=== PATIENT | male | born 1990 | race Caucasian/White ===

== ENCOUNTER 2020-02-01 23:26 | Emergency (ER) | payer MEDICAID, SELFPAY ==
[2020-02-01 23:29] VITALS: BP 103/74; PULSE 125; RESP 18; TEMP 36.9; O2SAT 100
--- NOTE | 2020-02-01 23:30 | W.ED.GENAD ---
Discharge Plan Disposition Patient Disposition: HOME Condition: Good Discharge Details Chief Complaint: Laceration Clinical Impression: Laceration of multiple sites of right hand and fingers Primary Care Provider: Brian Tubbs ED Provider: Librado Aden Home Meds and New Rx's Prescriptions: New cephalexin 500 mg tablet 500 mg PO Q8H Qty: 10 RF: 0 Discharge Instructions Instructions: Laceration (ED) Additional Instructions: You will need follow-up with orthopedics to evaluate whether you injured the tendon in your index finger or not. It is also possible that you compressed the median nerve too long. You should call in the morning for follow-up appointment. Wear the splint on this finger at all times until follow-up. You may remove the bandages and clean the area twice a day and then re-bandage. Take antibiotics as directed. Return to ED for increasing pain, redness, swelling, drainage. Referrals: David Lanier MD [ [facility] STAFF PHYSICIAN] - Discharge Data Discharge Date/Time-TO BE ENTERED AT DEPARTURE: 02/02/20 00:25 Medical Decision Making Patient presenting with right finger lacerations. Also has numbness in the right thumb, index finger, long finger. Tight tourniquet that he applied himself wrapped around the wrist compressing median nerve. This was cut away with some effort. No significant bleeding from the lacerations. Good capillary refill noted. Continued complaint of diminished sensation. Able to feel pinprick, however. Unable to flex the PIP or DIP joints of the index finger. Good flexion of the thumb. Good flexion of the other 3 fingers. Normal extension. Lacerations are present on the palmar aspect at the base of the index and long finger. Please see procedure notes. Digital block done to both fingers with lidocaine 1% plain. Wounds irrigated out. Gently explored. Index finger laceration does appear to be deep but is not obviously involving the flexor tendon. Long finger laceration fairly superficial. Wounds with 4-0 nylon. Patient tolerated well. Both lacerations dressed. Index finger put in a baseball splint for protection of possible flexor tendon injury. Tetanus status updated. Cephalexin started. Would assume the numbness to his fingers related to the tourniquet and compression of the median nerve and hopefully resolves with time. Possible that the compression is what was also affecting the ability to flex his finger given that the laceration itself did not seem that deep. But, given the location the possibility of flexor tendon laceration is considered. Will refer to orthopedics for follow-up. Patient placed on orthopedic follow-up list and I will contact on-call physician in the morning. HPI General Mode of arrival: ambulatory. Date/Time Provider Initiated Documentation: 02/01/20 23:30. Limitations to Documentation: no limitations. Information obtained by: patient and RN notes reviewed. HPI Narrative: Patient presents to ED with lacerations to his right hand. Patient is right-hand dominant. He was chopping up wood with a machete. The machete was wet. His hand slipped and his index and long finger were lacerated. He is intoxicated. He had a friend drive him here. He thought he was losing too much blood and wrapped a tourniquet with his shirt and duct tape very tightly around his right wrist. He reports the numbness involving his thumb, index finger, long finger of the right hand. He denies other injury. He does not know his last tetanus status. Related Data Home Medications Medication Instructions Recorded Confirmed cephalexin 500 mg PO Q8H #10 tab 02/02/20 Previous Rx's Medication Instructions Recorded cephalexin 500 mg PO Q8H #10 tab 02/02/20 Allergies Allergy/AdvReac Type Severity Reaction Status Date / Time No Known Allergies Allergy Unverified 02/01/20 23:32 Review of Systems Constitutional Constitutional: Denies fever(s) Cardiovascular Cardiovascular: Denies dyspnea Respiratory Respiratory: Denies cough and Denies dyspnea Musculoskeletal Musculoskeletal: Reports numbness and Reports tingling Integumentary/Breasts Skin/Breast: Reports wounds Neurologic Neurologic: Reports numbness and Reports tingling [facility] Medical History ADHD (attention deficit hyperactivity disorder) evaluation (Chronic) 12/19/97 Surgical History Hydrocelectomy 03/1998-RIGHT Social History Smoking/Tobacco Use Status: Current every day Alcohol Intake: current Drug use: Occasionally Do you feel safe at home: Yes Do you feel safe in your relationship?: Yes Exam Const General: cooperative, no acute distress and well developed Nutritional Appearance: well nourished Orientation: alert and oriented x3 HENMT Head: normal to inspection, normocephalic and atraumatic Neck Neck: normal visual inspection, trachea midline and supple Resp Effort & Inspection: normal respiratory effort Skin Trauma: laceration (Laceration across base of the palmar aspect of the long and index finger) Neuro General: patient alert, patient oriented x3, gait normal and CN's II-XI intact bilaterally Cognition: normal cognition Speech: speech normal Gait: normal gait Motor: strength 5/5 throughout Sensory Exam: other (Decreased sensation in the right thumb, index, long finger palmar aspect.) Extrem Right upper extremity: normal capillary refill, wrist (Tight tourniquet involving shirt and duct tape wrapped around the wrist.) and hand Details: other (Decreased sensation as stated above. Full extension of all fingers. Full flexion of thumb. Unable to flex PIP or DIP of index finger. Good flexion of other 3 fingers.) Procedures Laceration Laceration 1: Site: hand (Index finger) Side (If applicable): right Size (cm): 1.5 Description: linear Depth: simple, single layer Pre-repair: wound explored and irrigated extensively Skin layer closed with: nylon Size (cm): 4-0 Number of sutures: 3 Technique: simple, interrupted Laceration 2: Site: hand (Long finger) Side (If applicable): right Size (cm): 1 Description: linear Depth: simple, single layer Pre-repair: wound explored and irrigated extensively Skin layer closed with: nylon Size (cm): 4-0 Number of sutures: 2 Technique: simple, interrupted Nerve Block Nerve Block 1: Time out performed: Yes Local Anesthetic: Lidocaine 1% Amount of anesthesia used (mL): 3 Side: right Nerve Blocks: digital Procedure Successful: Yes Patient Tolerated Procedure: well Nerve Block 2: Time out performed: Yes Local Anesthetic: Lidocaine 1% Amount of anesthesia used (mL): 3 Side: right Nerve Blocks: digital Procedure Successful: Yes Patient Tolerated Procedure: well
[2020-02-02] MEDS: Cephalexin 500 MG CAP, 2 CAPS/BTL PO (00:20)
--- NOTE | 2020-02-07 11:27 | PDOC.ERCMPRO ---
- If Service Date Differs Date of service: 02/03/20 Time of Service: 11:27 Care Management Progress Note CM telephones [facility] to ensure receipt of referral. Marta advises they did get a referral but have been unable to reach patient to schedule an appointment. CM will follow up with patient.
== END 2020-02-02 00:25 | disposition home or self-care (01) ==
LOC: ER 02-02 00:33
PROVIDERS: Emergency Provider Emergency Medicine; PCP Family Medicine
DX: S61.210A Laceration without foreign body of right index finger without damage to nail, initial encounter (principal); S61.212A Laceration without foreign body of right middle finger without damage to nail, initial encounter; W26.0XXA Contact with knife, initial encounter; R20.0 Anesthesia of skin; F10.120 Alcohol abuse with intoxication, uncomplicated
CPT/HCPCS: 12001; 90471

== ENCOUNTER 2023-05-15 06:04 | Emergency (ER) | payer MEDICAID, SELFPAY ==
[2023-05-15 06:08] VITALS: BP 132/94; PULSE 73; RESP 16; TEMP 36.8; O2SAT 95
--- NOTE | 2023-05-15 06:15 | DI.RAD_ITS ---
Exam(s) XR WRIST RT COMPLETE EXAM: XR WRIST RT COMPLETE CLINICAL HISTORY: pain s/p fall. TECHNIQUE: 2D digital imaging was performed. COMPARISON: No exams were available for comparison FINDINGS: 3 views No evidence of fracture or dislocation nor significant ulnar variance. Bone density normal. No osse ous lesions. IMPRESSION: No significant osseous findings in the wrist. DATA REPOSITORY: RADIATION DOSE DELIVERED:
--- NOTE | 2023-05-15 06:30 | ED.GENADUL_ITS ---
Discharge Plan Disposition Patient Disposition: Home Condition: Stable Discharge Details Chief Complaint: Orthopedic Clinical Impression: Right wrist sprain Primary Care Provider: Unknown,Unknown ED Provider: Jimmy Siu Home Meds and New Rx's Prescriptions: No Action No Known Home Meds Discharge Instructions Instructions: Wrist Sprain (ED) Additional Instructions: wear the splint until pain free if you are still having pain in a week follow up with express care or your primary care provider if you feel more ill or have severe worsening of pain return to the emergency department Medical Decision Making 33 yo male with no chronic medical problems comes in with right wrist pain. He states 2 weeks or so ago he tripped and caught himself with his right wrist and bent his wrist posteriorly. No head truama or loc. HE's had radail sided wrist pain since. He has no visible or palpable deformities of the wrist. Full rom though wth some pain on the radial side of the wrist. Full rom of the fingers, normal pulses and senastion, is tender in the right anterior wrist, no snuffbox tenderness. Suspect sprain of the wrist, will obtain xrays to evaluate for fracture xray negative on my read, vrad turnaround time estimaged at 90 minutes and patient doesn't want to wait which I feel is reasonable. Suspect wrist sprain, will place in thumb spica splint and advised if still having pain in a week to see pcp, return precautions given Differential Diagnosis Differential Diagnosis: sprain, strain, fracture Imaging Data Radiologic Study: Attestation: I personally reviewed and interpreted this imaging study as follows: Imaging: X-Ray My impression: no acute findings HPI General Mode of arrival: ambulatory . Date/Time Provider Initiated Documentation: 05/15/23 06:13 . Limitations to Documentation: no limitations . Information obtained by: patient . History of Present Illness 33 year old M presents to the emergency department with the chief complaint of right wrist pain, described as moderate, Quality is described as aching, Patient started experiencing this week(s) (2) and it has been constant. Rest improves symptom(s), Movement worsens symptoms . Patient notes no other symptoms.. Patient did receive the following treatments prior to arrival, none Related Data Home Medications Medication Instructions Recorded Confirmed Unknown [No Known Home Meds] 05/15/23 05/15/23 Allergies Allergy/AdvReac Type Severity Reaction Status Date / Time No Known Allergies Allergy Unverified 05/15/23 06:15 General Stated Complaint: Orthopedic DIANE: 4 Review of Systems All systems reviewed & are unremarkable except as noted in HPI and below Constitutional Constitutional: Denies chills, Denies fever(s) and Denies weakness Cardiovascular Cardiovascular: Denies chest pain and Denies dyspnea Respiratory Respiratory: Denies cough and Denies dyspnea Gastrointestinal Gastrointestinal: Denies abdominal pain, Denies nausea and Denies vomiting Integumentary/Breasts Skin/Breast: Denies rash Neurologic Neurologic: Denies weakness Psychiatric Psychiatric: Denies depression PFSH All Active Problems (Updated 05/15/23 @ 06:49 by Jimmy Siu MD) Right wrist sprain (Acute) ADHD (attention deficit hyperactivity disorder) evaluation (Chronic) 12/19/97 Surgical History Hydrocelectomy 03/1998-RIGHT Social History Smoking/Tobacco Use Status: Current every day Tobacco Type: cigarettes Smoking risk assessment performed?: Yes Alcohol Intake: current Alcohol Intake frequency: a few times a week Alcohol type: beer Drug use: Daily Substance use type: marijuana Housing: apartment Do you feel safe at home: Yes Do you feel safe in your relationship?: Yes Exam Const General: no acute distress Orientation: alert HENMT Head: normal to inspection Ears: external ears normal General nose exam: external nose normal Mouth: moist mucous membranes Eyes General: appearance normal, both eyes and all related structures Neck Neck: normal visual inspection Resp Effort & Inspection: normal respiratory effort and able to speak in complete sentences Cardio Rate: regular rate Skin General skin exam: no rashes or lesions noted Neuro General: patient alert and patient oriented x3 Extrem General: normal to inspection, full ROM and capillary refill normal Psych Mental Status: mental status grossly normal Course Vital Signs Vital signs: Vital Signs Temperature 36.8 C 05/15/23 06:08 Pulse 73 05/15/23 06:08 Respiratory Rate 16 05/15/23 06:08 Blood Pressure 132/94 H 05/15/23 06:08 Pulse Oximetry 95 05/15/23 06:08 Temperature 36.8 C 05/15/23 06:08 Temperature Source Oral 05/15/23 06:08 Pulse 73 05/15/23 06:08 Respiratory Rate 16 05/15/23 06:08 Respiratory Effort Normal, Non-Labored 05/15/23 06:13 Blood Pressure 132/94 H 05/15/23 06:08 Blood Pressure Position Sitting 05/15/23 06:08 Pulse Oximetry 95 05/15/23 06:08 Oxygen Delivery Method Room Air 05/15/23 06:08 Oxygen Flow Rate 0 05/15/23 06:08 Pain Level 4 05/15/23 06:16 PAWSS Have you Been Recently Intoxicated or Drunk Within the Last 30 days?: No Have you Ever Experienced Previous Episodes of Alcohol Withdrawal?: No Have you ever Experienced Withdrawal Seizures?: No Have you ever Experienced Delirium Tremens(DT)s?: No Have you ever undergone Alcohol Rehabilitation Treatment (i.e, inpt ot outpatient treatment programs)?: No Have you ever Experienced Blackouts?: No Have you ever Combined Alcohol with other Downers within the last 90 days?: No Have you ever Combined Alcohol with any other Substance of Abuse during the last 90 days?: No Positive Blood Alcohol level on Presentation? [PCS.BAL]: No Evidence of Increased Autonomic Activity (i.e. HR>120, tremor, sweating, agitation, nausea)?: No Result: 0
[2023-05-15] MEDS: Ibuprofen 600 MG TAB PO (06:33)
--- NOTE | 2023-05-15 07:57 | DI.VRAD_ITS ---
PROCEDURE INFORMATION: Exam: XR Right Wrist Exam date and time: 05/15/2023 6:37 AM Age: 33 years old Clinical indication: Other: Pain S/P fall TECHNIQUE: Imaging protocol: Radiologic exam of the right wrist. Views: 3 or more views. COMPARISON: No relevant prior studies available. FINDINGS: Bones/joints: No fracture seen. No dislocation. Soft tissues: Unremarkable. IMPRESSION: No fracture seen. If there is tenderness in the anatomic snuffbox, repeat radiographs in 7-10 days are recommended to evaluate for occult scaphoid fracture. Dictated and Authenticated by: Susanne Post MD. Ordering:NAPOLEON Marquez MD
--- NOTE | 2023-05-15 13:36 | NUR.NOTE ---
Accessed pt chart to determine diagnosis for [facility] billing. Nursing Note:
== END 2023-05-15 06:52 | disposition home or self-care (01) ==
PROVIDERS: Emergency Provider Emergency Medicine
DX: S63.501A Unspecified sprain of right wrist, initial encounter (principal); F17.210 Nicotine dependence, cigarettes, uncomplicated; W01.0XXA Fall on same level from slipping, tripping and stumbling without subsequent striking against object, initial encounter
CPT/HCPCS: 29125; 99283; 73110

== ENCOUNTER 2024-05-30 13:56 | Emergency (ER) | payer SELFPAY ==
[2024-05-30 14:02] VITALS: BP 123/74; PULSE 101; RESP 14; TEMP 36.7; O2SAT 97
--- OUTSIDE RECORDS SUMMARY | 2024-05-30 14:21 | XMS_ITS | Continuity of Care Document ---
Author Organization [facility] Address [address] [place] [address] Encounter LTTL_ME FIN NBR [id number] Date(s): 12/02/22 - 12/02/22 [facility] [address] [place], [place] [address] Encounter Diagnosis Finger laceration(Discharge Diagnosis) - 12/02/22 Discharge Disposition: Home or Self Care Attending Physician: Marta Bridges MD Admitting Physician: Marta Bridges MD Allergies, Adverse Reactions, Alerts No Known Allergies Immunizations Given and Recorded Vaccine Date Status Refusal Reason tetanus/diphth/pertuss (Tdap) adult/adol 12/02/22 Given Medications No Known Medications Mental Status 12/02/22 Eye Opening Response Rescue Spontaneous ly Best Verbal Response Vaibhav Oriented Best Motor Response Vaibhav Obeys comman ds Vaibhav Coma Score 15 Vital Signs Most recent to oldest [Reference Range]: 1 Temperature Temporal Artery [36-38 Deg C ] 35.9 Deg C *LOW* (12/02/22 2:43 PM) Peripheral Pulse Rate [60-100 bpm] 77 bp m (12/02/22 2:43 PM) Respiratory Rate [12-24 br/min] 16 br/mi n (12/02/22 2:43 PM) Blood Pressure [90-140/60-90 mmHg] 139/8 3mmHg (12/02/22 2:43 PM) Weight 72.57 kg (12/02/22 2:43 PM) Weight Dosing 72.57 kg (12/02/22 2:57 PM) Height 182.880 cm (12/02/22 2:43 PM) Height/Length Dosing 182.880 cm (12/02/22 2:57 PM) Body Mass Index 22.000 kg/m2 (12/02/22 2:43 PM) Social History Social History Type Response Tobacco Current everyday tob acco user Tobacco Use:. Sex Hospital Discharge Instructions Patient Education 12/02/2022 15:30:11 Laceration Care, Adult Laceration Care, Adult A laceration is a cut that may go through all layers of the skin and into the tissue that is right under the skin. Some lacerations heal on their own. Others need to be closed with stitches (sutures), jacky, skin adhesive strips, or skin glue. Proper care of a laceration reduces the risk for infection, helps the laceration heal better, and may prevent scarring. General tips ??? Keep the wound clean and dry. ??? Do not scratch or pick at the wound. ??? Wash your hands with soap and water for at least 20 seconds before and after touching your wound or changing your bandage (dressing). If soap and water are not available, use hand inner tube cutter. ??? Do not usedisinfectants or antiseptics, such as rubbing alcohol, to clean your wound unless told by your health care provider. ??? If you were given a dressing, you should change it at least once a day, or as told by your health care provider. You should also change it if it becomes wet or dirty. How to care for your laceration If sutures or jacky were used: ??? Keep the wound completely dry for the first 24 hours, or as told by your health care provider. After that time, you may shower or bathe. Do not soak your wound in water until after the sutures orstaples have been removed. ??? Clean the wound once each day, or as told by your health care provider. To do this: ??? Wash the wound with soap and water. ??? Rinse the wound with water to remove all soap. ??? Pat the wound dry with a clean towel. Do not rub the wound. ??? After cleaning the wound, apply a thin layer of antibiotic ointment, other topical ointments, or a non-adherent dressing as told by your health care provider. This will help prevent infection andkeep the dressing from sticking to the wound. ??? Have the sutures or jacky removed as told by your health care provider. Do not remove suturesor jacky yourself. If skin adhesive strips were used: ??? Do not get the skin adhesive strips wet. You may shower or bathe, but keep the wound dry. ??? If the wound gets wet, pat it dry with a clean towel. Do not rub the wound. ??? Skin adhesive strips fall off on their own. If adhesive strip edges start to loosen and curl up, you may trim the loose edges. Do not remove adhesive strips completely unless your health care provider tells you to do that. If skin glue was used: ??? You may shower or bathe, but try to keep the wound dry. Do not soak the wound in water. ??? After showering or bathing, pat the wound dry with a clean towel. Do not rub the wound. ??? Do not do any activities that will make you sweat a lot until the skin glue has fallen off. ??? Do not apply liquid, cream, or ointment medicine to the wound while the skin glue is in place. Doing this may loosen the film before the wound has healed. ??? If a dressing is placed over the wound, do not apply tape directly over the skin glue. Doing this may cause the glue to be pulled off before the wound has healed. ??? Do not pick at the glue. Skin glue usually remains in place for 5???10 days and then falls off the skin. Follow these instructions at home: Medicines ??? Take jqkb-irj-pagyava and prescription medicines only as told by your health care provider. ??? If you were prescribed an antibiotic medicine or ointment, take or apply it as told by your health care provider. Do not stop using it even if your condition improves. Managing pain and swelling ??? If directed, put ice on the injured area. To do this: ??? Put ice in a plastic bag. ??? Place a towel between your skin and the bag. ??? Leave the ice on for 20 minutes, 2???3 times a day. ??? Remove the ice if your skin turns bright red. This is very important. If you cannot feel pain, heat, or cold, you have a greater risk of damage to the area. ??? Raise (elevate) the injured area above the level of your heart while you are sitting or lying down for the first 24???48 hours after the laceration is repaired. General instructions ??? Avoid any activity that could cause your wound to reopen. ??? Check your wound every day for signs of infection. Watch for: ??? More redness, swelling, or pain. ??? Fluid or blood. ??? Warmth. ??? Pus or a bad smell. ??? Keep all follow-up visits. This is important. Contact a health care provider if: ??? You received a tetanus shot and you have swelling, severe pain, redness, or bleeding at the injection site. ??? Your closed wound breaks open. ??? You have any of these signs of infection: ??? More redness, swelling, or pain around your wound. ??? Fluid or blood coming from your wound. ??? Warmth coming from your wound. ??? Pus or a bad smell coming from your wound. ??? A fever. ??? You notice something coming out of the wound, such as wood or glass. ??? Your pain is not controlled with medicine. ??? You notice a change in the color of your skin near your wound. ??? You need to change the dressing often. ??? You develop a new rash. ??? You have numbness around the wound. Get help right away if: ??? You develop severe swelling around the wound. ??? Your pain suddenly increases and is severe. ??? You develop painful lumps near the wound or on skin anywhere else on your body. ??? You have a red streak going away from your wound. ??? The wound is on your hand or foot, and you cannot properly move a finger or toe. ??? The wound is on your hand or foot, and you notice that your fingers or toes look pale or bluish. Summary ??? A laceration is a cut that may go through all layers of the skin and into the tissue that is right under the skin. ??? Some lacerations heal on their own. Others need to be closed with stitches (sutures), jacky, skin adhesive strips, or skin glue. ??? Proper care of a laceration reduces the risk of infection, helps the laceration heal better, and may prevent scarring. This information is not intended to replace advice given to you by your health care provider. Make sure you discuss any questions you have with your health care provider. Document Revised: 10/04/2021 Document Reviewed: 10/04/2021 [employer] Patient Education ?? 2021 [employer]. Follow Up Care 12/02/2022 14:43:50 With:JOSE Clark Address: [address] [place] [address] When: Unknown Comments:Your evaluation in the emergency department today??was performed by above GIUSEPPE.Clean and dryUtilize??nonstick dressings as??given to you here in the emergency departmentReturn in 7 to 10 days for suture removal??either here or at occupational health. With:Tylenol/Motrin for Pain/Fever Relief Address: When: Unknown Comments:Utilize Motrin 400-600 mg??every 6-8 hours as needed discomfort, Tylenol 1000 mg every 8 hours??as needed Physician Emergency department Note * JOSE Clark: PERFORM Event Display: ED Note Physician Authored Date: [id number] YIFAN JUAN :1990 Age:32 years Sex:Male Visit Date:12/02/2022 Basic Information Time Seen: JOSE Clark / 12/02/2022 14:53 Chief Complaint pt was approx 10 feet up on ladder working of roof, ladder toppled over and pt fell to ground, laceration to right index finger History Of Present Illness: Patient is a 32-year-old male who has??no acute medical problems??however patient was at work today??when he??slipped while on a ladder approximately 6 feet up. 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 He notes that??he crimper??which she attached to the ladder because the ladder to pull to the side??and he fell sideways.?? He was able to brace himself for impact however in the following attempt??he tried to grab onto the roof where he caught a piece of sheet metal and sliced his??index finger??causing a laceration.?? He notes he had the ground with no significant force??was able to??roll??and??did not hit his head lose consciousness or has any other concerning findings. ??He did tear his pants??during the fall??with no lower extremity injuries. Review of Systems: See HPI Physical Exam Vitals & Measurements T:??35.9?C ??(Temporal Artery)?? HR:??77??(Peripheral)?? RR:??16?? BP:??139/83?? SpO2:??95%?? HT:??182.880??cm?? WT:??72.57??kg?? BMI:??22.000?? O2 Therapy:??Room air?? Patient alert oriented age-appropriate well-nourished nontoxic Normocephalic atraumatic Neck supple nontender EOM intact, PERRLA, sclera nonicteric Clear to auscultation bilaterally Regular rate and rhythm no murmurs Abdominal exam reveals normal bowel sounds, negative rebound tenderness, negative psoas sign Normal gait and station, normal strength all extremities Neuro exam intact without focal deficit Right hand is examined, the pad of the??right index finger??there is a??5 cm laceration that goes from??the??tip??to just below??the PIP joint.?? Full range of motion of the joint Appropriate mood and affect Medical Decision Making: Patient is evaluated and there is no acute trauma??other than laceration 1% lidocaine is infused for digital block Areas cleaned with saline and chlorhexidine Finger tourniquet is placed with good hemostasis Visualized??wound to base in bloodless field without any debris or concern 9 single interrupted sutures are placed??with 5-0 nylon??tube gauze is placed As a dressing and patient tolerated this well Patient is??uncertain of his last tetanus and a Tdap is provided at today's visit Patient will be discharged as below Procedure No Qualifying Data Assessment/Plan 1.??Finger laceration??U96.504Y I instructed the patient that he should keep this area clean and dry over the next [address] He may then remove this and??dress as desired. ??He should keep this clean and dry at work and limited use of right hand??however he is able to continue to work with light duty. ??If he has any question concerns or new symptoms he will??return to the emergency department otherwise he will follow-upin 7 to 10 days for suture removal. Orders: Discharge Patient, 12/02/22 16:29:00 EDT Patient Education Laceration Care, Adult Follow Up With When Contact Information JOSE Clark [address] [place] [phone] Additional Instructions: Your evaluation in the emergency department today??was performed by above GIUSEPPE. ? Clean and dry Utilize??nonstick dressings as??given to you here in the emergency department Return in 7 to 10 days for suture removal??either here or at occupational health. Tylenol/Motrin for Pain/Fever Relief Additional Instructions: Utilize Motrin 400-600 mg??every 6-8 hours as needed discomfort, Tylenol 1000 mg every 8 hours??as needed Problem List/Past Medical History Ongoing No qualifying data Historical No qualifying data Medication Administration Given tetanus/diphth/pertussis (Tdap) adult/adol 5 units-2 units-15.5 mcg/0.5 mL intramuscular suspension, 0.5 mL, IM Allergies No Known Allergies Social History Electronic Cigarette/Vaping Electronic Cigarette Use: Never. Tobacco Current everyday tobacco user Tobacco Use:. Electronically Signed on 12/02/22 06:46 PM JOSE Clark Emergency department Discharge instructions * JOSE Clark: PERFORM Event Display: ED Discharge Information Authored Date: [id number] YIFAN JUAN :1990 Age:32 years Sex:Male Visit Date:12/02/2022 Discharge Instructions We would like to thank you for allowing us to assist you with your healthcare needs. The following includes patient education materials and information regarding your injury/illness. Diagnosis from Today's Visit Finger laceration Discharge Vitals Temperature??(Temporal Artery) 96.6 ??F (35.9 ??C) Heart Rate??(Peripheral) 77 Respiratory Rate?? 16 Blood Pressure?? 139/83?? Height?? 72.00 in (182.880 cm) Weight?? 160.02 lb (72.57 kg) BMI?? 22.000 Allergies No Known Allergies What to Do Next You Need to Schedule the Following Appointments Follow Up with??JOSE lCark Why: Your evaluation in the emergency department today??was performed by alonso CHIN. ? Clean and dry Utilize??nonstick dressings as??given to you here in the emergency department Return in 7 to 10 days for suture removal??either here or at occupational health. Where: [address] [place] [address] Follow Up with??Tylenol/Motrin for Pain/Fever Relief Why: Utilize Motrin 400-600 mg??every 6-8 hours as needed discomfort, Tylenol 1000 mg every 8 hours??as needed You were treated today on an emergency basis; it may be mena to contact your primary care provider to notify them of your visit today. You may have been referred to your regular doctor or a specialist, please follow up as instructed. If your condition worsens or you can't get in to see the doctor, contact the Emergency Department. Education Materials Laceration Care, Adult A laceration is a cut that may go through all layers of the skin and into the tissue that is right under the skin. Some lacerations heal on their own. Others need to be closed with stitches (sutures), jacky, skin adhesive strips, or skin glue. Proper care of a laceration reduces the risk for infection, helps the laceration heal better, and may prevent scarring. General tips ? Keep the wound clean and dry. ? Do not scratch or pick at the wound. ? Wash your hands with soap and water for at least 20 seconds before and after touching your wound orchanging your bandage (dressing). If soap and water are not available, use hand inner tube cutter. ? Do not usedisinfectants or antiseptics, such as rubbing alcohol, to clean your wound unless told byyour health care provider. ? If you were given a dressing, you should change it at least once a day, or as told by your health care provider. You should also change it if it becomes wet or dirty. How to care for your laceration If sutures or jacky were used: ? Keep the wound completely dry for the first 24 hours, or as told by your health care provider. After that time, you may shower or bathe. Do not soak your wound in water until after the sutures or jacky have been removed. ? Clean the wound once each day, or as told by your health care provider. To do this: ? Wash the wound with soap and water. ? Rinse the wound with water to remove all soap. ? Pat the wound dry with a clean towel. Do not rub the wound. ? After cleaning the wound, apply a thin layer of antibiotic ointment, other topical ointments, or a non-adherent dressing as told by your health care provider. This will help prevent infection and keep the dressing from sticking to the wound. ? Have the sutures or jacky removed as told by your health care provider. Do not remove sutures or jacky yourself. If skin adhesive strips were used: ? Do not get the skin adhesive strips wet. You may shower or bathe, but keep the wound dry. ? If the wound gets wet, pat it dry with a clean towel. Do not rub the wound. ? Skin adhesive strips fall off on their own. If adhesive strip edges start to loosen and curl up, you may trim the loose edges. Do not remove adhesive strips completely unless your health care provider tells you to do that. If skin glue was used: ? You may shower or bathe, but try to keep the wound dry. Do not soak the wound in water. ? After showering or bathing, pat the wound dry with a clean towel. Do not rub the wound. ? Do not do any activities that will make you sweat a lot until the skin glue has fallen off. ? Do not apply liquid, cream, or ointment medicine to the wound while the skin glue is in place. Doing this may loosen the film before the wound has healed. ? If a dressing is placed over the wound, do not apply tape directly over the skin glue. Doing this may cause the glue to be pulled off before the wound has healed. ? Do not pick at the glue. Skin glue usually remains in place for 5???10 days and then falls off the skin. Follow these instructions at home: Medicines ? Take iric-nqu-xsxcvjs and prescription medicines only as told by your health care provider. ? If you were prescribed an antibiotic medicine or ointment, take or apply it as told by your health care provider. Do not stop using it even if your condition improves. Managing pain and swelling ? If directed, put ice on the injured area. To do this: ? Put ice in a plastic bag. ? Place a towel between your skin and the bag. ? Leave the ice on for 20 minutes, 2???3 times a day. ? Remove the ice if your skin turns bright red. This is very important. If you cannot feel pain, heat, or cold, you have a greater risk of damage to the area. ? Raise (elevate) the injured area above the level of your heart while you are sitting or lying down for the first 24???48 hours after the laceration is repaired. General instructions ? Avoid any activity that could cause your wound to reopen. ? Check your wound every day for signs of infection. Watch for: ? More redness, swelling, or pain. ? Fluid or blood. ? Warmth. ? Pus or a bad smell. ? Keep all follow-up visits. This is important. Contact a health care provider if: ? You received a tetanus shot and you have swelling, severe pain, redness, or bleeding at the injection site. ? Your closed wound breaks open. ? You have any of these signs of infection: ? More redness, swelling, or pain around your wound. ? Fluid or blood coming from your wound. ? Warmth coming from your wound. ? Pus or a bad smell coming from your wound. ? A fever. ? You notice something coming out of the wound, such as wood or glass. ? Your pain is not controlled with medicine. ? You notice a change in the color of your skin near your wound. ? You need to change the dressing often. ? You develop a new rash. ? You have numbness around the wound. Get help right away if: ? You develop severe swelling around the wound. ? Your pain suddenly increases and is severe. ? You develop painful lumps near the wound or on skin anywhere else on your body. ? You have a red streak going away from your wound. ? The wound is on your hand or foot, and you cannot properly move a finger or toe. ? The wound is on your hand or foot, and you notice that your fingers or toes look pale or bluish. Summary ? A laceration is a cut that may go through all layers of the skin and into the tissue that is right under the skin. ? Some lacerations heal on their own. Others need to be closed with stitches (sutures), jacky, skinadhesive strips, or skin glue. ? Proper care of a laceration reduces the risk of infection, helps the laceration heal better, and may prevent scarring. This information is not intended to replace advice given to you by your health care provider. Make sure you discuss any questions you have with your health care provider. Document Revised: 10/04/2021 Document Reviewed: 10/04/2021 [employer] Patient Education ?? 2021 [employer] Tests Performed Medications and Immunizations Administered Given tetanus/diphth/pertussis (Tdap) adult/adol 5 units-2 units-15.5 mcg/0.5 mL intramuscular suspension, 0.5 mL, IM Patient/Jira Administrator Signature Patient Name:YIFAN JUAN I have received this information and my questions have been answered. Patient/Jira Administrator Name: Patient/Jira Administrator Signature: Relationship to Patient: Witness Name/Signature: Date: Electronically Signed on: 12/02/2022 16:30 EDTSigned by:AB Patient Care team information Care Team Personnel Name: JOSE Clark Position: Physician Member Role: Physician Shell Fisherman Address: Address: [address] [place] [phone] Name: Rosalia Mejía Position: Nurse Member Role: ED Nurse
--- NOTE | 2024-05-30 14:59 | ED.GENADUL_ITS ---
Discharge Plan Disposition Patient Disposition: Home Condition: Stable Discharge Details Clinical Impression: Cellulitis Primary Care Provider: Unknown,Unknown ED Provider: Dennis Reyna Home Meds and New Rx's Prescriptions: New clindamycin HCl 300 mg capsule 300 mg PO TID 5 Days Qty: 15 0RF Discharge Instructions Instructions: Cellulitis (Skin Infection), Adult ED Additional Instructions: Please take antibiotics as prescribed. Follow-up with primary care physician. Return to the emergency department for any worsening symptoms HPI General Date/Time Provider Initiated Documentation: 05/30/24 14:36 . HPI Narrative: 34-year-old male presents with acute on chronic skin irritation to left lower extremity, believes he contracted poison efren which then became infected, no fevers chills nausea vomiting or other systemic signs or symptoms, there is a b urning painful sensation to the rash Related Data Home Medications ?Medication ?Instructions ?Recorded ?Confirmed clindamycin HCl 300 mg capsule 300 mg PO TID 5 days #15 caps 05/30/24 Previous Rx's ?Medication ?Instructions ?Recorded clindamycin HCl 300 mg capsule 300 mg PO TID 5 days #15 caps 05/30/24 Allergies Allergy/AdvReac Type Severity Reaction Status Date / Time No Known Allergies Allergy Unverified 05/30/24 14:04 General Stated Complaint: Cellulitis DIANE: 4 Exam Narrative Exam Narrative: Erythematous indurated area of skin left anterior medial tibial region no lymphangitic streaking no fluctuance no purulence, areas of excoriated skin around lesion Alert interactive Moist mucous membranes tolerating secretions Normal voice no respiratory distress Full range of motion of all extremities no joint involvement Course Vital Signs Vital signs: Vital Signs Temperature 36.7 C 05/30/24 14:02 Pulse 101 H 05/30/24 14:02 Respiratory Rate 14 05/30/24 14:02 Blood Pressure 123/74 05/30/24 14:02 Pulse Oximetry 97 05/30/24 14:02 Temperature 36.7 C 05/30/24 14:02 Temperature Source Oral 05/30/24 14:02 Pulse 101 H 05/30/24 14:02 Respiratory Rate 14 05/30/24 14:02 Blood Pressure 123/74 05/30/24 14:02 Blood Pressure Position Sitting 05/30/24 14:02 Pulse Oximetry 97 05/30/24 14:02 Oxygen Delivery Method Room Air 05/30/24 14:02 Oxygen Flow Rate 0 05/30/24 14:02 Pain Level 7 05/30/24 14:02 Medical Decision Making 34-year-old male presents with likely superinfected contact dermatitis to left lower extremity, peripheral area of lesion appears excoriated and crusted no fluctuance or purulence noted no crepitus, no joint involvement full range of motion afebrile nontoxic tachycardia likely related to pain, given erythema and induration localized area progressive over the last couple of days concern for c ellulitis, will start patient on clindamycin, home care instructions and return precautions given. No systemic signs of illness at this time Quality:SDOH Health Related Social Needs: No Data to Display PFSH All Active Problems (Updated 05/30/24 @ 15:01 by Dennis Reyna MD) Cellulitis (Acute) ADHD (attention deficit hyperactivity disorder) evaluation (Chronic) 12/19/97 Surgical History Hydrocelectomy 03/1998-RIGHT Social History Smoking/Tobacco Use Status: Current every day Tobacco Type: cigarettes Smoking risk assessment performed?: Yes Alcohol Intake: current Alcohol Intake frequency: a few times a week Alcohol type: beer Drug use: Daily Substance use type: marijuana Housing: apartment Do you feel safe at home: Yes Do you feel safe in your relationship?: Yes
[2024-05-30 15:08] VITALS: BP 123/74; PULSE 101; RESP 14; TEMP 36.7; O2SAT 97
[2024-05-30] MEDS: Clindamycin 300 MG CAP PO (15:08)
--- NOTE | 2024-05-31 15:27 | NUR.NOTE ---
Patient called asking for prescription to be called to [facility]. Per Dr Banks I called this in. Nursing Note:
== END 2024-05-30 15:12 | disposition home or self-care (01) ==
PROVIDERS: Emergency Provider Emergency Medicine
DX: L03.116 Cellulitis of left lower limb (principal); F17.210 Nicotine dependence, cigarettes, uncomplicated
CPT/HCPCS: 99283

== ENCOUNTER 2024-06-15 10:57 | Emergency (ER) | payer SELFPAY ==
[2024-06-15 10:58] VITALS: BP 146/76; PULSE 87; RESP 12; TEMP 36.8; O2SAT 97
[2024-06-15 11:36] LABS: Abs Immature Grans 0.06 10^3/uL (0.0-0.06); Absolute Eosinophil Count 0.14 10^3/uL (0.0-0.7); Absolute Lymphocyte Count 1.44 10^3/uL (1.2-3.4); Absolute Monocyte Count 0.93 10^3/uL (0.1-0.8); Basophils % 0.4 %; Eosinophils % 0.8 %; HCT 41.3 % (40.0-50.0); Immature Grans % 0.4 %; Lymphocytes % 8.5 %; MCH 30.4 pg (27.0-33.0); MCHC 33.9 % (32.0-36.0); MCV 90 fL (80-95); MPV 10.6 fL (8.0-11.0); Monocytes % 5.5 %; Neutrophils % 84.4 %; Platelet Count 288 10^3/uL (130-400); RBC 4.61 10^6/uL (4.36-5.78); RDW 12.1 % (11.8-14.1); RDW-SD 39.7 fL; WBC 16.93 10^3/uL (4.4-10.8)
[2024-06-15 11:38] LABS: Absolute Basophil Count 0.07 10^3/uL (0.0-0.2); Absolute Neutrophil Count 14.29 10^3/uL (1.2-6.7); ESR 21 mm/hr (0-15)
--- NOTE | 2024-06-15 11:46 | DI.RAD_ITS ---
Exam(s) XR KNEE RT 3V AP,LAT,SHAJI EXAM: XR KNEE RT 3V AP,LAT,SHAJI CLINICAL HISTORY: effusion?, prepatellar erythema purulent drainage. TECHNIQUE: 2D digital imaging was performed of the right knee. Three views obtained. AP, lateral an d PA tunnel views were obtained. COMPARISON: No exams were available for comparison FINDINGS: BONES: No acute fracture is present. No bony destructive lesion is seen. JOINTS: The knee is normally aligned. No joint effusion is seen. SOFT TISSUE: There is soft tissue swelling anterior to the patella. No soft tissue gas is present. IMPRESSION: 1. No acute fracture or dislocation. No findings to suggest osteomyelitis. 2. Soft tissue swelling anterior to the patella. No soft tissue gas. DATA REPOSITORY: RADIATION DOSE DELIVERED:
[2024-06-15 12:39] LABS: ALT 42 U/L (16-63); AST 25 U/L (15-37); Albumin 3.6 g/dL (3.4-5.0); Alkaline Phosphatase 59 U/L (46-116); Anion Gap 7.8 mmol/L (3-11); BUN 15 mg/dL (7-18); Bilirubin, Total 0.46 mg/dL (0.2-1.0); C-Reactive Protein 5.83 mg/dL (<or=0.5); CO2 27.2 mmol/L (21.0-32.0); CREATININE 0.8 mg/dL (0.70-1.30); Calcium 9.5 mg/dL (8.5-10.1); Chloride 103 mmol/L (98-107); Estimated GFR 120.59 (mL/min/1.73m2); Glucose 103 mg/dL (74-106); Potassium 3.9 mmol/L (3.5-5.1); Sodium 138 mmol/L (136-145); Total Protein 7.9 g/dL (6.4-8.2)
[2024-06-15] MEDS: Sulfameth/Trimeth DS TAB 1 TAB PO (13:11)
--- NOTE | 2024-06-16 09:19 | NUR.NOTE ---
Accessed Pt chart to document antibiotics given upon discharging.
--- NOTE | 2024-06-16 16:47 | ED.GENADUL_ITS ---
Discharge Plan Disposition Patient Disposition: Home Condition: Stable Discharge Details Clinical Impression: Cellulitis Primary Care Provider: None,None ED Provider: Harriet Garcia Home Meds and New Rx's Prescriptions: New sulfamethoxazole-trimethoprim [Bactrim DS] 800-160 mg tablet 1 tab PO BID 10 Days Qty: 20 0RF Discharge Instructions Instructions: Cellulitis (Skin Infection), Adult ED Additional Instructions: Warm compresses as frequently as possible Take the antibiotic as prescribed, yogurt daily while on antibiotic Recheck in 48 hours Ibuprofen and Tylenol as needed for pain Return spreading redness, fever, worsening pain Discharge Data Discharge Date/Time-TO BE ENTERED AT DEPARTURE: 06/15/24 13:13 HPI General Date/Time Provider Initiated Documentation: 06/15/24 11:00 . HPI Narrative: This 34-year-old male with history of IV drug abuse presents with right knee pain and swelling. Denies fever or chills. History of IV heroin use. Denies any injection in his lower extremities. Denies chest pain or shortness of br eath. States he had a similar recent infection to his left lower extremity. Related Data Home Medications ?Medication ?Instructions ?Recorded ?Confirmed sulfamethoxazole 800 1 tab PO BID 10 days #20 tabs 06/15/24 mg-trimethoprim 160 mg tablet (Bactrim DS) Previous Rx's ?Medication ?Instructions ?Recorded sulfamethoxazole 800 1 tab PO BID 10 days #20 tabs 06/15/24 mg-trimethoprim 160 mg tablet (Bactrim DS) Allergies Allergy/AdvReac Type Severity Reaction Status Date / Time No Known Allergies Allergy Unverified 06/15/24 11:01 General Stated Complaint: Cellulitis DIANE: 3 Exam Narrative Exam Narrative: Abscess noted to prepatellar region on knee, may be bursal involvement, no evidence of septic arthritis, no palpable effusion, 2 inch region of surrounding cellulitis, purulent drainage, no crepitus, range of motion of knee intact Course Vital Signs Vital signs: Vital Signs Temperature 36.8 C 06/15/24 10:58 Pulse 87 06/15/24 10:58 Respiratory Rate 12 06/15/24 10:58 Blood Pressure 146/76 H 06/15/24 10:58 Pulse Oximetry 97 06/15/24 10:58 Temperature 36.8 C 06/15/24 10:58 Temperature Source Oral 06/15/24 10:58 Pulse 87 06/15/24 10:58 Respiratory Rate 12 06/15/24 10:58 Blood Pressure 146/76 H 06/15/24 10:58 Blood Pressure Position Sitting 06/15/24 10:58 Pulse Oximetry 97 06/15/24 10:58 Oxygen Delivery Method Room Air 06/15/24 10:58 Oxygen Flow Rate 0 06/15/24 10:58 Pain Level 8 06/15/24 12:56 Lab/Test Results Lab/Test Results: 06/15/24 13:08 Knee - Right Joint Wound Culture - Preliminary Staph aureus, MRSA 06/15/24 13:08 Knee - Right Joint Gram Stain - Final Laboratory Tests Range/Units 06/15/24 06/15/24 11:30 12:15 WBC (4.4-10.8) 10^3/uL 16.93 H RBC (4.36-5.78) 10^6/uL 4.61 Hgb (13.5-17.5) g/dL 14.0 Hct (40.0-50.0) % 41.3 MCV (80-95) fL 90 MCH (27.0-33.0) pg 30.4 MCHC (32.0-36.0) % 33.9 RDW (11.8-14.1) % 12.1 Plt Count (130-400) 10^3/uL 288 MPV (8.0-11.0) fL 10.6 Immature Gran % % 0.4 Neutrophils % % 84.4 Lymphocytes % % 8.5 Monocytes % % 5.5 Eosinophils % % 0.8 Basophils % % 0.4 Nucleated RBC % (0.0-0.3) % 0.0 Absolute Neutrophils (1.2-6.7) 10^3/uL 14.29 H Absolute Lymphocytes (1.2-3.4) 10^3/uL 1.44 Absolute Monocytes (0.1-0.8) 10^3/uL 0.93 H Absolute Eosinophils (0.0-0.7) 10^3/uL 0.14 Absolute Basophils (0.0-0.2) 10^3/uL 0.07 ESR (0-15) mm/hr 21 H Sodium Cancelled 138 Potassium Cancelled 3.9 Chloride Cancelled 103 Carbon Dioxide Cancelled 27.2 Anion Gap Cancelled 7.8 BUN Cancelled 15 Creatinine Cancelled 0.8 Est GFR (CKD-EPI 2020) Cancelled 120.59 Glucose Cancelled 103 Calcium Cancelled 9.5 Total Bilirubin Cancelled 0.46 AST Cancelled 25 ALT Cancelled 42 Alkaline Phosphatase Cancelled 59 C-Reactive Protein Cancelled 5.83 H Total Protein Cancelled 7.9 Albumin Cancelled 3.6 Procedures Abscess I/D Site: Lower Extremity Side (if applicable): Right Local Anesthetic: Lidocaine 1% Amount of anesthesia used (mL): 5 Technique: Incised with #11 Blade Medical Decision Making 34-year-old male history of IV drug use presenting without symptoms to prepatellar regional knee, may be bursal involvement, x-ray was ordered, no obvious effusion without clinical findings consistent with septic arthritis. Leukocytosis 16,000, CRP and sed rate mildly elevated ESR 21 CRP 5, will need close outpatient reassessment, 2-day recheck recommended. Incision and drainage performed and wound culture sent. Wound culture MRSA positive, Bactrim initiated. Return precautions reviewed and patient expressed understanding. No clinical findings consistent with endocarditis x-ray per radiology interpretation and my review does not show evidence of effusion. Quality:SDOH Health Related Social Needs: No Data to Display PFSH All Active Problems (Updated 06/15/24 @ 13:06 by JOSE Reed) Cellulitis (Acute) ADHD (attention deficit hyperactivity disorder) evaluation (Chronic) 12/19/97 Surgical History Hydrocelectomy 03/1998-RIGHT Social History Smoking/Tobacco Use Status: Current every day Tobacco Type: cigarettes Smoking risk assessment performed?: Yes Alcohol Intake: current Alcohol Intake frequency: a few times a week Alcohol type: beer Drug use: Daily Substance use type: marijuana Housing: apartment Do you feel safe at home: Yes Do you feel safe in your relationship?: Yes
== END 2024-06-15 13:13 | disposition home or self-care (01) ==
PROVIDERS: Emergency Provider Physician Assistant
DX: L03.115 Cellulitis of right lower limb (principal); L02.415 Cutaneous abscess of right lower limb; B95.62 Methicillin resistant Staphylococcus aureus infection as the cause of diseases classified elsewhere; F17.210 Nicotine dependence, cigarettes, uncomplicated
CPT/HCPCS: 10060; 36415; 73562; 80053; 85652; 87077; 99284; 85025; 86140; 87070; 87186; 87205; 99283